=== PATIENT | female | born 1990 | race Caucasian/White ===

== ENCOUNTER 2018-03-14 16:03 | Emergency (ER) | payer OTHER ==
[~2018-03-14] VITALS: Ht 152.4 cm; Wt 51.3 kg
[2018-03-14 16:11] VITALS: Ht 152.4 cm; Wt 51.3 kg
[2018-03-14 17:18] LABS: microscopic required? NO
[2018-03-14 17:43] LABS: BASOPHIL % 0.5 % (0-2); PLATELET COUNT 247 x10^3mcL (130-400); RED CELL DISTRIBUTION WIDTH 12.8 % (11.5-14.5)
[2018-03-14 17:53] LABS: urine erythrocyte NEGATIVE (NEGATIVE)
[2018-03-14 20:08] VITALS: BP 114/65
== END 2018-03-14 20:08 | disposition home or self-care (01) ==
LOC: ED 16:03
PROVIDERS: Emergency Medicine
DX: O20.8 Other hemorrhage in early pregnancy (principal); Z3A.08 8 weeks gestation of pregnancy
CPT/HCPCS: 36415